=== PATIENT | male | born 1950 ===

== ENCOUNTER 2022-11-11 17:00 | Inpatient (IN) | payer OTHER, SELFPAY ==
[2022-11-11 17:09] VITALS: BP 72/48; BP 88/46; PULSE 100; RESP 20; TEMP 36.6; O2SAT 94; O2SAT 95; BMI 16.1
--- NOTE | 2022-11-11 17:45 | ED.GENADULT ---
HPI - General Adult General Chief complaint: General Medical Stated complaint: hypotensive, per ems Time Seen by Provider: 11/11/22 17:25 Source: patient Mode of arrival: EMS Limitations: no limitations History of Present Illness HPI narrative: Patient comes to the emergency room complaining of low blood pressure. Patient states that he has noted that for approximately 2 days he has had bloody liquidy stool in his ostomy bag. Patient denies being on blood thinners. Patient states that today, he was working with physical therapy visiting nurse at home. It was noticed that his blood pressure was 60/30. Patient reported lightheadedness. At this time, patient denies any pain, denies chest pain or shortness of breath. Patient states that he feels a bit weak. Related Data Allergies Allergy/AdvReac Type Severity Reaction Status Date / Time No Known Allergies Allergy Verified 11/11/22 17:08 Review of Systems Review of Systems: Constitutional : No Weight loss, No Fever, No Chills, No Night Sweats, complaining of feeling weak ENT/Mouth : No Hearing loss, No Ear Pain, No Nasal Congestion, No Sinus Pain, No Hoarseness, No sore throat, No Rhinorrhea, No Swallowing Difficulty Eyes: No Eye Pain, No Swelling, No Redness, No Foreign Body, No Discharge, No Vision Changes Cardiovascular : No Chest Pain, No SOB, No Dyspnea on Exertion, No Orthopnea, No Edema, No Palpitations Respiratory : No Cough, No Sputum, No Wheezing, No Smoke Exposure, No Dyspnea Gastrointestinal : No Nausea, No Vomiting, No Diarrhea, No Constipation, No abdominal Pain, complaining of seeing liquid bloody stool in the ostomy bag for couple of days Genitourinary :No Dysuria, No Urinary Frequency, No Hematuria, No Urinary Incontinence, No Urgency, No Flank Pain, No Urinary Flow Changes, No Hesitancy Musculoskeletal : No joint pain, No Myalgias, No Joint Swelling Skin : No Skin Lesions, No rash Neuro : No Weakness, No Numbness, No Paresthesias, No Loss of Consciousness, No Dizziness, No Headache Psych : No Anxiety/Panic, No Depression, No SI/HI/AH/VH, No Social Issues, Heme/Lymph: No Bruising, No Bleeding,No Lymphadenopathy Endocrine : No Polyuria, No Polydipsia, No Temperature Intolerance PMFSH Social History Social History Smoked in Last 30 Days: No Advance Directives: No Advance Directives Information Provided: No Physical Exam ED Vital Signs: Vital Signs - 24 hr 11/11/22 17:09 11/11/22 18:41 Temperature 97.8 F Pulse Rate 100 82 Respiratory Rate 20 18 Blood Pressure 88/46 L 141/51 H Pulse Oximetry 95 94 Oxygen Delivery Method Room Air Room Air BMI result Body Mass Index 16.1 Course Course Course Narrative: -all of patient's labs pending, patient's initial blood pressure 88/46. Patient has had multiple reads above 100 systolic, but not recorded in patient's chart Medications Administered Generic Name Dose Route Start Last Admin Trade Name Freq PRN Reason Stop Dose Admin Ceftriaxone Sodium 1 gm/ 50 mls @ 100 mls/hr 11/11/22 19:09 11/11/22 19:19 Sodium Chloride IV 11/11/22 19:38 100 mls/hr ONCE ONE Administration Discontinued Medications Generic Name Dose Route Start Last Admin Trade Name Freq PRN Reason Stop Dose Admin Sodium Chloride 1,611 mls @ 1,611 mls/hr 11/11/22 17:47 11/11/22 19:12 Ns 30 ml/kg infuse over 1 hr (1611 ml) 11/11/22 18:46 1,611 mls/hr IV Administration .Q1H STA Medical Decision Making Medical Decision Making MDM Narrative: -interpretation of labs: Patient's white blood cell count is significantly elevated, sodium 125, creatinine 3.49. We do not know patient's baselines. We requested records from [facility], patient states that he had left a BKA done at [facility] approximately 2 years ago. 19:09: Urine and chest x-ray still pending. patient being given ceftriaxone and already received 30 mL/kilogram of fluids. -patient has a sodium level of 125, patient receiving IV fluids. -patient's BUN and creatinine elevated. Creatinine 3.49. We requested records from [facility] but they do not have any records on the patient regarding labs. -Patient's white blood cell count 25.6, lactic acid has not been drawn at 19: 10 -my interpretation of chest x-ray: No pneumonia -radiology report: No focal consolidation, there is a 1 cm nodular opacity, will need follow-up -I discussed the patient with Dr. Harper, patient being admitted. Differential Diagnosis Differential Diagnoses: The differential diagnosis associated with the presentation includes (UTI, pneumonia, GI bleed) Admission/Observation Consideration of admission/observation: Escalation of care including admission/observation considered Consult Healthcare Provider Management of the patient was discussed with: Hospitalist (Dr. Harper) Lab Data MDM Lab Attestation statement: I reviewed the patient's lab results. 11/11/22 17:21 11/11/22 17:21 Labs: Lab Results 11/11/22 11/11/22 11/11/22 Range/Units 17:21 17:21 17:48 WBC 25.6 H (4.8-10.8) X10*3/uL RBC 3.85 L (4.60-5.80) X10*6/uL Hgb 11.3 L (14.0-18.0) g/dl Hct 33.1 L (42.0-52.0) % MCV 86.0 (80.0-98.0) fL MCH 29.4 (27.0-33.0) pg MCHC 34.1 (31.0-36.0) g/dl RDW 15.0 (11.0-16.0) % Plt Count 208 (160-400) X10*3/uL MPV 8.9 L (9.4-12.4) fL Immature Gran % (Auto) 0.7 H (0.0-0.4) % Neut % (Auto) 90.5 H (45-73) % Lymph % (Auto) 2.8 L (20-40) % [place] % (Auto) 4.7 (2-11) % Eos % (Auto) 1.1 (0-4) % Baso % (Auto) 0.2 (0-2) % Lymph # (Auto) 0.7 L (1.2-4.9) X10*3/uL [place] # (Auto) 1.2 (0.1-1.2) X10*3/uL Eos # (Auto) 0.3 (0.0-0.4) X10*3/uL Baso # (Auto) 0.0 (0.0-0.2) X10*3/uL Abs Immat Gran (auto) 0.18 H (0.00-0.03) X10*3/uL Absolute Neuts (auto) 23.2 H (2.0-8.3) x10*3/uL Absolute Nucleated RBC 0.000 (0.0-0.012) X10*3/uL Nucleated RBC % (auto) 0.0 (0.0-0.2) /100WBC Smear Tech's Comments VERIFIED Sodium 125 L (135-145) mmol/L Potassium 4.8 (3.3-5.1) mmol/L Chloride 92 L (96-108) mmol/L Carbon Dioxide 19 L (22-29) mmol/L Anion Gap 19 (12-20) BUN 57 H (9-16) mg/dL Creatinine 3.49 H (0.5-1.4) mg/dL Estim Creat Clear Calc 14.3 Estimated GFR 17 Random Glucose 95 (60-115) mg/dL Calcium 9.3 (8.4-10.2) mg/dL Total Bilirubin 0.3 (0.0-1.0) mg/dL Direct Bilirubin 0.1 (0.0-0.5) mg/dL AST 22 (5-37) U/L ALT 22 (0-40) U/L Alkaline Phosphatase 96 (39-117) U/L Total Protein 6.9 (6.5-8.0) g/dL Albumin 3.7 (3.5-5.0) g/dL Lipase 9 (8-78) U/L Urine Color Urine Appearance Urine pH (5.0-9.0) Ur Specific [place] (1.005-1.025) Urine Protein (Neg-Trace) mg/dL Urine Glucose (UA) (Negative) mg/dL Urine Ketones (Negative) mg/dL Urine Blood (Negative) Urine Nitrite (Negative) Ur Leukocyte Esterase (Negative) Urine RBC (0-2) /HPF Urine WBC (0-5) /HPF Ur Squamous Epith Cells (0-2) /HPF Urine Bacteria (None Seen) Hyaline Casts (0-2) /LPF Stool Occult Blood POSITIVE (NEGATIVE) 11/11/22 Range/Units 18:48 WBC (4.8-10.8) X10*3/uL RBC (4.60-5.80) X10*6/uL Hgb (14.0-18.0) g/dl Hct (42.0-52.0) % MCV (80.0-98.0) fL MCH (27.0-33.0) pg MCHC (31.0-36.0) g/dl RDW (11.0-16.0) % Plt Count (160-400) X10*3/uL MPV (9.4-12.4) fL Immature Gran % (Auto) (0.0-0.4) % Neut % (Auto) (45-73) % Lymph % (Auto) (20-40) % [place] % (Auto) (2-11) % Eos % (Auto) (0-4) % Baso % (Auto) (0-2) % Lymph # (Auto) (1.2-4.9) X10*3/uL [place] # (Auto) (0.1-1.2) X10*3/uL Eos # (Auto) (0.0-0.4) X10*3/uL Baso # (Auto) (0.0-0.2) X10*3/uL Abs Immat Gran (auto) (0.00-0.03) X10*3/uL Absolute Neuts (auto) (2.0-8.3) x10*3/uL Absolute Nucleated RBC (0.0-0.012) X10*3/uL Nucleated RBC % (auto) (0.0-0.2) /100WBC Smear Tech's Comments Sodium (135-145) mmol/L Potassium (3.3-5.1) mmol/L Chloride (96-108) mmol/L Carbon Dioxide (22-29) mmol/L Anion Gap (12-20) BUN (9-16) mg/dL Creatinine (0.5-1.4) mg/dL Estim Creat Clear Calc Estimated GFR Random Glucose (60-115) mg/dL Calcium (8.4-10.2) mg/dL Total Bilirubin (0.0-1.0) mg/dL Direct Bilirubin (0.0-0.5) mg/dL AST (5-37) U/L ALT (0-40) U/L Alkaline Phosphatase (39-117) U/L Total Protein (6.5-8.0) g/dL Albumin (3.5-5.0) g/dL Lipase (8-78) U/L Urine Color Dark Yellow Urine Appearance Cloudy Urine pH 5.5 (5.0-9.0) Ur Specific [place] 1.015 (1.005-1.025) Urine Protein 100 (2+) H (Neg-Trace) mg/dL Urine Glucose (UA) Negative (Negative) mg/dL Urine Ketones Trace (Negative) mg/dL Urine Blood Trace H (Negative) Urine Nitrite Negative (Negative) Ur Leukocyte Esterase Trace H (Negative) Urine RBC 0-2 (0-2) /HPF Urine WBC 6-10 H (0-5) /HPF Ur Squamous Epith Cells 3-5 (0-2) /HPF Urine Bacteria None Seen (None Seen) Hyaline Casts >20 (0-2) /LPF Stool Occult Blood (NEGATIVE) Independent Interpretation I performed an independent interpretation of an: Plain X-Ray Radiology Impression Discussion of test interpretation with radiology: I have reviewed the radiologist's reading. Radiologist Impression: FINDINGS: Cardiac and mediastinal silhouette is within normal limits. Aortic arch calcification. Cardiac leads overlie the chest. There is a 1 cm nodular opacity projected over the left lower lung. This could represent a nipple shadow versus a nodule. Normal pulmonary vascularity. No evidence of focal consolidation, effusion or pulmonary edema. No pneumothorax is seen. XR/XR chest 1V IMPRESSION: *No evidence of focal consolidation. ? *1 cm nodular opacity projected over the left lower lung. This could represent a nipple shadow versus nodule. There are no priors available for comparison. Recommend follow-up radiograph with nipple markers for further evaluation. Critical Care Time Critical Care Time Critical Care Time: Yes Total Critical Care Time: 60 Attestation: I have personally provided critical care time. Time includes review of lab data, radiology results, discussion with consultants, and monitoring for potential decompensation. Intervention performed as documented. Discharge Plan Discharge Clinical Impression: Acute hyponatremia, Acute kidney injury, GI bleed, Acute UTI Patient Disposition: Admitted As Inpatient
[2022-11-11 18:41] VITALS: BP 141/51; PULSE 82; RESP 18; O2SAT 94
--- NOTE | 2022-11-11 18:42 | PC.NURSE ---
Straight cath urine obained, upon entering room, Pt iv had become dislodged, IVF all over floor. Attempting new IV placement and IVF order. Pt has friend bringing ostomy supplies in so we can visualize stoma, and ostomy is currently leaking from side
[2022-11-11 19:09] VITALS: BP 149/66; PULSE 102; RESP 20; O2SAT 97
[2022-11-11 19:23] VITALS: BP 151/74; PULSE 102; RESP 20
--- NOTE | 2022-11-11 19:29 | PM.IMHP ---
History of Present Illness Date of Service: 11/11/22 Attending physician on admission: Lj Harper Chief Complaint: Low blood pressure Pt is a 72-year-old male with a PMH significant for?COPD, HTN, HLD, and s/p left AKA in 2019 who presents to the ED after patient's physical therapist noted him to be hypotensive. Patient lives alone but has help from family and VNA, ambulates mostly with a wheelchair but can ambulate with help with a prosthetic leg. Patient states that he woke up a couple of days ago and felt dizzy, nauseous, and with abdominal pain. Says he could barely touch his stomach due to tenderness. Patient also noted bloody liquid stool in his ostomy. Patient had subjective feve though he did not take his temperature. Denies chills. Patient also reports having decreased p.o. intake of both solids and fluids, having lately only been drinking Coca-[employer]a. Has chronic shortness of breath that he says ?may be a little worse than at baseline. Patient also reports a sacral decubitus ulcer. Has had 1 in the past but it went away for a long time, however patient says that a few weeks ago it began to come back. Has not yet had VNA services take care of it. In the ED patient was afebrile but tachycardic up to 102, with initial BP hypotensive at 88/46, though now hypertensive at 151/74. Labs were significant for leukocytosis of 25.6, H&H 11.3/33.1, sodium of 125, BUN 57, creatinine 3.49. Stool was positive for occult blood. UA positive for urine blood, trace leukocyte esterase, WBC 6-10, and with squamous epithelial cells of 3-5, but negative nitrates, and bacteria, likely negative for UTI. CXR showed no evidence of focal consolidation. Did note 1 cm nodule opacity projected over the left lower lung that could represent nipple shadow versus nodule, with recommendation of follow-up radiograph with nipple markers for further evaluation. CT?of abdomen and pelvis pending. EKG demonstrated normal sinus rhythm without evidence of ST elevations or depressions. Pt was treated with IVF sepsis bolus and ceftriaxone. Pt will be admitted to the hospital for treatment and further evaluation of sepsis likely secondary to colitis. Review of Systems Review of Systems: Hypotension Abdominal pain Bloody liquid stool in ostomy x3 days Weakness Nausea, dizziness Sacral decubitus ulcer Decreased p.o. intake of fluids and solids Worsening chronic SOB PMFSH Social History Smoked in Last 30 Days: No Advance Directives: No Advance Directives Information Provided: No Meds Allergies Allergy/AdvReac Type Severity Reaction Status Date / Time No Known Allergies Allergy Verified 11/11/22 17:08 Active Medications: Current Medications Acetaminophen (Acetaminophen 325 Mg Tablet) 650 mg PO Q6H PRN PRN Reason: Pain, Mild (Pain Scale 1-3) Acetaminophen (Acetaminophen Supp 650 Mg Supp.Rect) 650 mg NV Q6H PRN PRN Reason: Pain, Mild (Pain Scale 1-3) Ceftriaxone Sodium 1 gm/ (Sodium Chloride) 50 mls @ 100 mls/hr IV ONCE ONE Stop: 11/11/22 19:38 Last Admin: 11/11/22 19:19 Dose: 100 mls/hr Ondansetron HCl (Ondansetron Hcl 4 Mg/2 Ml Vial) 4 mg IVPUSH Q8H PRN PRN Reason: Nausea and Vomiting Pantoprazole Sodium (Pantoprazole Sodium 40 Mg/10 Ml Vial) 80 mg IVPUSH ONCE ONE Stop: 11/11/22 19:27 Pantoprazole Sodium (Pantoprazole Sodium 40 Mg/10 Ml Vial) 40 mg IVPUSH BID@0630,1630 [facility] Pharmacy Consult (Consult Rx Perform Med Rec) 1 each MISCELLANE ONCE PRN PRN Reason: Consult order Pharmacy Consult (Consult Rx Perform Med Rec) 1 each MISCELLANE ONCE PRN PRN Reason: Consult order Sodium Chloride (0.9 % Sodium Chloride Flush 3 Ml Syringe) 3 ml IVFLUSH QSHIFT [facility] Home Medications Medication Instructions Recorded Confirmed Last Taken Type albuterol sulfate 90 mcg/actuation 2 puff inhalation Q4H PRN wheezing 11/11/22 11/11/22 Unknown History aerosol inhaler aspirin 81 mg tablet,delayed 81 mg PO DAILY 11/11/22 11/11/22 11/11/22 History release atorvastatin 20 mg tablet 20 mg PO DAILY 11/11/22 11/11/22 11/11/22 History bupropion HCl 150 mg tablet,12 hr 150 mg PO DAILY 11/11/22 11/11/22 11/11/22 History sustained-release buspirone 5 mg tablet 5 mg PO BEDTIME 11/11/22 11/11/22 11/10/22 History cyanocobalamin (vitamin B-12) 1,000 mcg PO DAILY 11/11/22 11/11/22 11/11/22 History 1,000 mcg tablet fluticasone 250 mcg-salmeterol 50 1 inh inhalation BID PRN Shortness 11/11/22 11/11/22 Unknown History mcg/dose blistr powdr for Of Breath inhalation (Wixela Inhub) gabapentin 100 mg capsule 100 mg PO BID 11/11/22 11/11/22 11/11/22 History guaifenesin 600 mg tablet, 600 mg PO Q12H PRN Congestion 11/11/22 11/11/22 Unknown History extended release 12 hr ipratropium 0.5 mg-albuterol 3 mg 3 ml inhalation QID PRN Shortness 11/11/22 11/11/22 Unknown History (2.5 mg base)/3 mL nebulization Of Breath soln lisinopril 10 mg tablet 10 mg PO DAILY 11/11/22 11/11/22 11/11/22 History lorazepam 0.5 mg tablet 0.5 mg PO BID PRN Anxiety 11/11/22 11/11/22 Unknown History sertraline 100 mg tablet 200 mg PO DAILY 11/11/22 11/11/22 11/11/22 History trazodone 50 mg tablet 50 mg PO BEDTIME PRN Sleep 11/11/22 11/11/22 Unknown History Physical Exam Vital Signs and Narrative: Vital Signs: Last Vital Signs Temp 97.8 F 11/11/22 17:09 Pulse 102 H 11/11/22 19:23 Resp 20 11/11/22 19:23 BP 151/74 H 11/11/22 19:23 Pulse Ox 97 11/11/22 19:09 O2 Del Method Room Air 11/11/22 19:09 BMI result Body Mass Index 16.1 Constitutional: Alert, cachectic, in no acute distress. Mental Status: Oriented to person, place and time. Eyes: Pupils are equal, round, and reactive to light. Ear, Nose, and Throat: Oropharynx clear, mucous membranes dry. Ears and nose without deformities. Trachea midline. Respiratory: Clear to auscultation bilaterally with diminished breath sounds thorughout. No wheezing, rales, or rhonchi. Cardiovascular: S1, S2 regular. No murmurs, rubs, or gallops. Gastrointestinal: Abdomen soft, non-distended, ostomy in place with bloodly liquid output. LUQ and LLQ tenderness. Normal bowel sounds. Neurologic: Cranial nerves II-XII are grossly intact bilaterally. No focal neurological deficits. Moves all extremities spontaneously. Skin: Stage 1 decubitus ulcer of left buttock. See picture below. Musculoskeletal: No cyanosis or clubbing. Left AKA. Extremities: No edema. Psychiatric: Normal mood and affect. Results Labs 11/11/22 17:21 11/11/22 17:21 Labs: Laboratory Results - last 24 hr 11/11/22 11/11/22 11/11/22 17:21 17:21 17:48 MCV 86.0 MCH 29.4 MCHC 34.1 RDW 15.0 Plt Count 208 MPV 8.9 L Immature Gran % (Auto) 0.7 H Neut % (Auto) 90.5 H Lymph % (Auto) 2.8 L [place] % (Auto) 4.7 Eos % (Auto) 1.1 Baso % (Auto) 0.2 Lymph # (Auto) 0.7 L [place] # (Auto) 1.2 Eos # (Auto) 0.3 Baso # (Auto) 0.0 Abs Immat Gran (auto) 0.18 H Absolute Neuts (auto) 23.2 H Absolute Nucleated RBC 0.000 Nucleated RBC % (auto) 0.0 Smear Tech's Comments VERIFIED Anion Gap 19 Estim Creat Clear Calc 14.3 Estimated GFR 17 Random Glucose 95 Calcium 9.3 Total Bilirubin 0.3 Direct Bilirubin 0.1 AST 22 ALT 22 Alkaline Phosphatase 96 Total Protein 6.9 Albumin 3.7 Lipase 9 Urine Color Urine Appearance Urine pH Ur Specific [place] Urine Protein Urine Glucose (UA) Urine Ketones Urine Blood Urine Nitrite Ur Leukocyte Esterase Urine RBC Urine WBC Ur Squamous Epith Cells Urine Bacteria Hyaline Casts Stool Occult Blood POSITIVE 11/11/22 18:48 MCV MCH MCHC RDW Plt Count MPV Immature Gran % (Auto) Neut % (Auto) Lymph % (Auto) [place] % (Auto) Eos % (Auto) Baso % (Auto) Lymph # (Auto) [place] # (Auto) Eos # (Auto) Baso # (Auto) Abs Immat Gran (auto) Absolute Neuts (auto) Absolute Nucleated RBC Nucleated RBC % (auto) Smear Tech's Comments Anion Gap Estim Creat Clear Calc Estimated GFR Random Glucose Calcium Total Bilirubin Direct Bilirubin AST ALT Alkaline Phosphatase Total Protein Albumin Lipase Urine Color Dark Yellow Urine Appearance Cloudy Urine pH 5.5 Ur Specific [place] 1.015 Urine Protein 100 (2+) H Urine Glucose (UA) Negative Urine Ketones Trace Urine Blood Trace H Urine Nitrite Negative Ur Leukocyte Esterase Trace H Urine RBC 0-2 Urine WBC 6-10 H Ur Squamous Epith Cells 3-5 Urine Bacteria None Seen Hyaline Casts >20 Stool Occult Blood Imaging Radiologist's Impressions: Impressions Chest X-Ray 11/11/22 18:04 IMPRESSION: *No evidence of focal consolidation. *1 cm nodular opacity projected over the left lower lung. This could represent a nipple shadow versus nodule. There are no priors available for comparison. Recommend follow-up radiograph with nipple markers for further evaluation. Assessment and Plan (1) Acute hyponatremia: Status: Acute (2) Acute kidney injury: Status: Acute (3) GI bleed: Status: Acute Plan Pt is a 72-year-old male with a PMH significant for?COPD, HTN, HLD, and s/p left AKA in 2019 who presents to the ED after patient's physical therapist noted him to be hypotensive. Patient lives alone but has help from family and VNA, ambulates mostly with a wheelchair but can ambulate with help with a prosthetic leg. Patient states that he woke up a couple of days ago and felt dizzy, nauseous, with abdominal pain, and bloody liquid output in his ostomy. Pt will be admitted to the hospital for treatment and further evaluation of sepsis likely secondary to colitis. Sepsis possibly secondary to colitis Patient arrived meeting severe sepsis criteria: hypotensive at 88/46, WBC 25.6, tachycardic, creatinine 3.49 Lactic acid WNL at 0.7 Pt with abdominal pain, bloody liquid output in ostomy No other clear signs or sources of infection: No signs of cellulitis, UA negative for UTI, CXR negative Received IVF 30 mls/kg bolus, IV abx Will check CT of abdomen and pelvis Will empirically treat with ceftriaxone, metronidazole IV Protonix GI consult Full liquid diet for now, NPO after midnight Pneumatic boots for DVT prophylaxis Follow CBC ISIDRA Patient's creatinine 3.49, baseline unknown Likely secondary to dehydration due to GI losses and decreased p.o. intake Patient received IVF in ED Follow BMP Hyponatremia Patient's sodium 125 at time of presentation Likely secondary to GI losses, ISIDRA Patient receiving IVF in ED Follow BMP Stage I decubitus ulcer of left buttock Patient positioning q.2 hours Air loss mattress Daily dressing changes Wound care consult COPD Not in acute exacerbation Continue home inhalers HTN Hold antihypertensives for now, resume as indicated Monitor BP closely HLD Continue statin Full Code Attending:?Dr. Harper DVT Prophylaxis: Pneumatic boots Pt will require a hospitalization of at least two nights for treatment of?sepsis in the setting of likely colitis with IVF, IV antibiotics, and specialist consult. Time Spent With Patient Time: Total time managing care of this patient today ____ minutes. Quality Stroke Does the patient have a stroke diagnosis?: No VTE Prior VTE?: No VTE Risk Level:: Medical - moderate - high VTE Device Contraindication: N/A - Device Ordered VTE Drug Contraindication: Treatment Not Indicated
[2022-11-11 19:52] VITALS: BP 146/69; PULSE 102; RESP 20; O2SAT 94
[2022-11-11 21:06] VITALS: BP 150/67; PULSE 111; RESP 18; TEMP 36.6; O2SAT 93
--- NOTE | 2022-11-11 21:19 | PHA.MEDREC ---
Pharmacy Consult ? Medication Reconciliation Pharmacy has completed the medication reconciliation. Pt with list but no doses, uses [facility] [employer] [facility]. Got list faxed from [place] and used that with claim history to match pt list.
[2022-11-12] VITALS (10 sets, daily range): BP systolic 109–135; BP diastolic 56–65; PULSE 89–108; RESP 16–20; TEMP 36.3–37.3; O2SAT 90–94
[2022-11-12] MEDS: Albuterol/Iprat 2.5/0.5MG 3 ML AMPUL.NEB INHALE ×3 (03:20→22:40)
--- NOTE | 2022-11-12 07:33 | PC.NURSE ---
Assumed care for patient 11/11 @ 1710. Patient retaining urine overnight/ no output in [place] cath. Bladder scanned for >999ml. Patient reporting pelvic discomfort at rest and to palpation at time of scan. Covering Dr. Harper notified, orders for de, placed with 1300ml immediate output.
--- NOTE | 2022-11-12 11:19 | HO.PM.IMPN ---
Subjective Subjective Date of Service: 11/12/22 Review of Systems Follow up dizziness feeling hungry no abd pain Physical Exam Vital Signs: Vital Signs: Last Vital Signs Temp 97.6 F 11/12/22 07:13 Pulse 100 11/12/22 07:13 Resp 20 11/12/22 07:13 BP 109/60 11/12/22 07:13 Pulse Ox 94 11/12/22 07:13 O2 Del Method Room Air 11/12/22 07:13 BMI result Body Mass Index 16.1 Appearing in no acute distress lung sounds are clear to auscultation heart regular rate rhythm, clear S1, S2 positive bowel sounds, abdomen is soft, nontender neuro patient is alert x3, no focal deficits Objective Data Active Medications Acetaminophen (Acetaminophen 325 Mg Tablet) 650 mg PO Q6H PRN PRN Reason: Pain, Mild (Pain Scale 1-3) Acetaminophen (Acetaminophen Supp 650 Mg Supp.Rect) [address] Q6H PRN PRN Reason: Pain, Mild (Pain Scale 1-3) Albuterol Sulfate (Albuterol Sulfate 90 Mcg 8 Gm Inhaler) 2 puff INHALE RQ4H PRN PRN Reason: wheezing Albuterol/Ipratropium (Albuterol/Iprat 2.5/0.5mg 3 Ml Ampul.Neb) 3 ml INHALE RQ4H PRN PRN Reason: Wheezing Last Admin: 11/12/22 03:20 Dose: 3 ml Documented By: ZOE Bupropion HCl (Bupropion Hcl 75 Mg Tablet) 75 mg PO BID [facility] Last Admin: 11/12/22 08:59 Dose: 75 mg Documented By: LUDY Buspirone HCl (Buspirone Hcl 5 Mg Tablet) 5 mg PO BEDTIME [facility] Last Admin: 11/11/22 21:50 Dose: 5 mg Documented By: JACKSON Fluticasone/Vilanterol (Fluticasone/Vilanterol 100/25 Blst.W.Dev) 1 puff INHALE DAILY PRN PRN Reason: Shortness Of Breath Gabapentin (Gabapentin 100 Mg Capsule) 100 mg PO BID [facility] Last Admin: 11/12/22 08:59 Dose: 100 mg Documented By: LUDY Guaifenesin (Guaifenesin La 600 Mg Tab.Er.12h) 600 mg PO Q12H PRN PRN Reason: Congestion Ceftriaxone Sodium 1 gm/ (Sodium Chloride) 50 mls @ 100 mls/hr IV Q24H [place] Metronidazole (Flagyl) 500 mg in 100 mls @ 100 mls/hr IV Q8H [facility] Last Infusion: 11/12/22 06:50 Dose: 0 mls/hr Documented By: GISSEL Lorazepam (Lorazepam 0.5 Mg Tablet) 0.5 mg PO BID PRN PRN Reason: Anxiety Last Admin: 11/11/22 21:59 Dose: 0.5 mg Documented By: JACKSON Ondansetron HCl (Ondansetron Hcl 4 Mg/2 Ml Vial) 4 mg IVPUSH Q8H PRN PRN Reason: Nausea and Vomiting Pantoprazole Sodium (Pantoprazole Sodium 40 Mg/10 Ml Vial) 40 mg IVPUSH BID@0630,1630 [facility] Last Admin: 11/12/22 05:46 Dose: 40 mg Documented By: GISSEL Pharmacy Consult (Consult Rx Perform Med Rec) 1 each MISCELLANE ONCE PRN PRN Reason: Consult order Sertraline HCl (Sertraline Hcl 100 Mg Tablet) 200 mg PO DAILY [facility] Last Admin: 11/12/22 08:59 Dose: 200 mg Documented By: LUDY Sodium Chloride (0.9 % Sodium Chloride Flush 3 Ml Syringe) 3 ml IVFLUSH QSHIFT [facility] Last Admin: 11/12/22 09:00 Dose: 3 ml Documented By: LUDY Trazodone HCl (Trazodone Hcl 50 Mg Tablet) 50 mg PO BEDTIME PRN PRN Reason: Sleep Last Admin: 11/11/22 21:59 Dose: 50 mg Documented By: JACKSON Labs 11/12/22 06:11 11/12/22 06:11 Labs: Laboratory Results - last 24 hr 11/11/22 11/11/22 11/11/22 17:21 17:21 17:48 MCV 86.0 MCH 29.4 MCHC 34.1 RDW 15.0 Plt Count 208 MPV 8.9 L Immature Gran % (Auto) 0.7 H Neut % (Auto) 90.5 H Lymph % (Auto) 2.8 L C[place] % (Auto) 4.7 Eos % (Auto) 1.1 Baso % (Auto) 0.2 Lymph # (Auto) 0.7 L [place] # (Auto) 1.2 Eos # (Auto) 0.3 Baso # (Auto) 0.0 Abs Immat Gran (auto) 0.18 H Absolute Neuts (auto) 23.2 H Absolute Nucleated RBC 0.000 Nucleated RBC % (auto) 0.0 Smear Tech's Comments VERIFIED PT INR APTT Anion Gap 19 Estim Creat Clear Calc 14.3 Estimated GFR 17 POC Glucose Random Glucose 95 Lactic Acid Calcium 9.3 Magnesium Total Bilirubin 0.3 Direct Bilirubin 0.1 AST 22 ALT 22 Alkaline Phosphatase 96 Total Protein 6.9 Albumin 3.7 Lipase 9 Urine Color Urine Appearance Urine pH Ur Specific [place] Urine Protein Urine Glucose (UA) Urine Ketones Urine Blood Urine Nitrite Ur Leukocyte Esterase Urine RBC Urine WBC Ur Squamous Epith Cells Urine Bacteria Hyaline Casts Stool Occult Blood POSITIVE 11/11/22 11/11/22 11/11/22 18:48 19:18 19:18 MCV MCH MCHC RDW Plt Count MPV Immature Gran % (Auto) Neut % (Auto) Lymph % (Auto) Cascade % (Auto) Eos % (Auto) Baso % (Auto) Lymph # (Auto) Cascade # (Auto) Eos # (Auto) Baso # (Auto) Abs Immat Gran (auto) Absolute Neuts (auto) Absolute Nucleated RBC Nucleated RBC % (auto) Smear Tech's Comments PT 11.3 INR 1.0 APTT 31.0 Anion Gap Estim Creat Clear Calc Estimated GFR POC Glucose Random Glucose Lactic Acid 0.7 Calcium Magnesium Total Bilirubin Direct Bilirubin AST ALT Alkaline Phosphatase Total Protein Albumin Lipase Urine Color Dark Yellow Urine Appearance Cloudy Urine pH 5.5 Ur Specific [place] 1.015 Urine Protein 100 (2+) H Urine Glucose (UA) Negative Urine Ketones Trace Urine Blood Trace H Urine Nitrite Negative Ur Leukocyte Esterase Trace H Urine RBC 0-2 Urine WBC 6-10 H Ur Squamous Epith Cells 3-5 Urine Bacteria None Seen Hyaline Casts >20 Stool Occult Blood 11/11/22 11/12/22 11/12/22 19:18 06:11 06:11 MCV 88.9 MCH 29.3 MCHC 32.9 RDW 15.0 Plt Count 221 MPV 9.4 Immature Gran % (Auto) 0.7 H Neut % (Auto) 90.5 H Lymph % (Auto) 2.3 L [place] % (Auto) 5.3 Eos % (Auto) 0.9 Baso % (Auto) 0.3 Lymph # (Auto) 0.5 L [place] # (Auto) 1.1 Eos # (Auto) 0.2 Baso # (Auto) 0.1 Abs Immat Gran (auto) 0.15 H Absolute Neuts (auto) 19.2 H Absolute Nucleated RBC 0.000 Nucleated RBC % (auto) 0.0 Smear Tech's Comments VERIFIED PT INR APTT Anion Gap 17 Estim Creat Clear Calc 26.4 Estimated GFR 35 POC Glucose Random Glucose 51 L* Lactic Acid Calcium 9.3 Magnesium 2.4 Total Bilirubin Direct Bilirubin AST ALT Alkaline Phosphatase Total Protein Albumin Lipase Urine Color Urine Appearance Urine pH Ur Specific [place] Urine Protein Urine Glucose (UA) Urine Ketones Urine Blood Urine Nitrite Ur Leukocyte Esterase Urine RBC Urine WBC Ur Squamous Epith Cells Urine Bacteria Hyaline Casts Stool Occult Blood 11/12/22 11/12/22 08:40 10:19 MCV MCH MCHC RDW Plt Count MPV Immature Gran % (Auto) Neut % (Auto) Lymph % (Auto) Cascade % (Auto) Eos % (Auto) Baso % (Auto) Lymph # (Auto) Cascade # (Auto) Eos # (Auto) Baso # (Auto) Abs Immat Gran (auto) Absolute Neuts (auto) Absolute Nucleated RBC Nucleated RBC % (auto) Smear Tech's Comments PT INR APTT Anion Gap Estim Creat Clear Calc Estimated GFR POC Glucose 55 L* 81 Random Glucose Lactic Acid Calcium Magnesium Total Bilirubin Direct Bilirubin AST ALT Alkaline Phosphatase Total Protein Albumin Lipase Urine Color Urine Appearance Urine pH Ur Specific [place] Urine Protein Urine Glucose (UA) Urine Ketones Urine Blood Urine Nitrite Ur Leukocyte Esterase Urine RBC Urine WBC Ur Squamous Epith Cells Urine Bacteria Hyaline Casts Stool Occult Blood Assessment and Plan (1) Colitis: Status: Acute Plan Pt is a 72-year-old male with a PMH significant for?COPD, HTN, HLD, and s/p left AKA in 2019 who presents to the ED after patient's physical therapist noted him to be hypotensive.? Patient lives alone but has help from family and VNA, ambulates mostly with a wheelchair but can ambulate with help with a prosthetic leg. Patient states that he woke up a couple of days ago and felt dizzy, nauseous, with abdominal pain, and bloody liquid output in his ostomy.? Pt will be admitted to the hospital for treatment and further evaluation of sepsis likely secondary to colitis. Sepsis possibly secondary to colitis s/p abdominal pain, bloody liquid output in ostomy No other clear signs or sources of infection:? No signs of cellulitis, UA negative for UTI, CXR negative empirically treat with ceftriaxone, metronidazole IV Protonix GI consult>no obvious colitis on abd ct, check stool studies and cdiff advance diet ISIDRA. Trending down Patient's creatinine 3.49, baseline unknown Likely secondary to dehydration due to GI losses and decreased p.o. intake Follow BMP Hyponatremia. Trending up Patient's sodium 125 at time of presentation Likely secondary to GI losses, ISIDRA treated with IV fluids Follow BMP Lung nodules unable to do contrast CT due to ISIDRA, will get non con CT to better assess nodules possible pyelonephritis noted in abd ct no urinary symptoms on rocephin for colitis, continue Stage I decubitus ulcer of left buttock repositioning q.2 hours Air loss mattress Daily dressing changes Wound care consult COPD Not in acute exacerbation Continue home inhalers HTN Hold antihypertensives for now, resume as indicated Monitor BP closely HLD Continue statin Full Code Attending:?Dr. Anthony DVT Prophylaxis:? Pneumatic boots continued hospital stay for treatment of?sepsis in the setting of likely colitis with IVF, IV antibiotics, and specialist consult. Time Spent With Patient Time: Total time managing care of this patient today ____ minutes. Quality Stroke Does the patient have a stroke diagnosis?: No VTE Prior VTE?: No VTE Risk Level:: Medical - moderate - high VTE Device Contraindication: N/A - Device Ordered VTE Drug Contraindication: Treatment Not Indicated
--- NOTE | 2022-11-12 13:11 | PM.GICN ---
History of Present Illness Data of Consult Service Date: 11/12/22 Requesting physician: Lj Harper Primary Care Provider: Unknown Physician HPI Reason for consult: Colitis This is a 72y.o M with PMH of COPD, HTN, HLD, left AKA in 2019 who was sent to the ER by his physiotherapist for dizziness and hypotension. Pt reports that for the past 3 days he has been feeling unwell. Has significant left sided abdominal pain associated with decrease in urinary output but increase in liquidy output of the ostomy. He also saw some blood in his ostomy output on which cleared up by next day. No fevers but does report chills and loss of appetite. Has been working with his PT to walk with leg prosthesis but has been noticing pain and discomfort x 1 week limiting his progress. When he presented to the ER he was noted to be septic with tachycardia and soft BPs. White count was elevated to [address] Abd/pel was obtained that showed mutliple abnormalities including possible L sided colitis for which GI has been consulted. Currently at the time of evaluation, pt reports resolution in abdominal pain - says the pain went away after he was cathed and put out almost 1300cc urine. Was taking liquid diet without any difficulty at the time of my assessment. Review of Systems Review of Systems: Yes all other systems are reviewed and are negative PMFSH Social History Social History Household Members: None Housing: House Patient Tobacco Use Status: Current everyday Tobacco user Tobacco use type: Cigarette Cigarette Packs Per Day: 0.5 Cigarettes Per Day: 10.0 Smoked in Last 30 Days: No Patient Interested in Nicotine Replacement: No Use of substances other than those prescribed or required for medical reasons: No Currently Displaying Signs/Symptoms of Drug Intoxication Withdrawal: No Have you been hit, kicked, punched, or otherwise hurt by someone within the past year? If so, by whom?: No Do you feel safe in your current relationship?: Yes Is there a partner from a previous relationship who is making you feel unsafe now?: No Are you made to feel afraid or neglected: No Advance Directives: No Advance Directives Information Provided: No Do you have thoughts of harming others: None Do you have a plan to hurt others: No Plan Recently lost weight without trying: No Nutrition Risks: No Nutritional Risk Poor oral hygiene: Yes Meds Allergies Allergy/AdvReac Type Severity Reaction Status Date / Time No Known Allergies Allergy Verified 11/11/22 17:08 Active Medications: Current Medications Acetaminophen (Acetaminophen 325 Mg Tablet) 650 mg PO Q6H PRN PRN Reason: Pain, Mild (Pain Scale 1-3) Acetaminophen (Acetaminophen Supp 650 Mg Supp.Rect) 650 mg DE Q6H PRN PRN Reason: Pain, Mild (Pain Scale 1-3) Albuterol Sulfate (Albuterol Sulfate 90 Mcg 8 Gm Inhaler) 2 puff INHALE RQ4H PRN PRN Reason: wheezing Albuterol/Ipratropium (Albuterol/Iprat 2.5/0.5mg 3 Ml Ampul.Neb) 3 ml INHALE RQ4H PRN PRN Reason: Wheezing Last Admin: 11/12/22 03:20 Dose: 3 ml Bupropion HCl (Bupropion Hcl 75 Mg Tablet) 75 mg PO BID [facility] Last Admin: 11/12/22 08:59 Dose: 75 mg Buspirone HCl (Buspirone Hcl 5 Mg Tablet) 5 mg PO BEDTIME [facility] Last Admin: 11/11/22 21:50 Dose: 5 mg Fluticasone/Vilanterol (Fluticasone/Vilanterol 100/25 Blst.W.Dev) 1 puff INHALE DAILY PRN PRN Reason: Shortness Of Breath Gabapentin (Gabapentin 100 Mg Capsule) 100 mg PO BID [facility] Last Admin: 11/12/22 08:59 Dose: 100 mg Guaifenesin (Guaifenesin La 600 Mg Tab.Er.12h) 600 mg PO Q12H PRN PRN Reason: Congestion Ceftriaxone Sodium 1 gm/ (Sodium Chloride) 50 mls @ 100 mls/hr IV Q24H [facility] Metronidazole (Flagyl) 500 mg in 100 mls @ 100 mls/hr IV Q8H [facility] Last Infusion: 11/12/22 06:50 Dose: Infused Lorazepam (Lorazepam 0.5 Mg Tablet) 0.5 mg PO BID PRN PRN Reason: Anxiety Last Admin: 11/11/22 21:59 Dose: 0.5 mg Ondansetron HCl (Ondansetron Hcl 4 Mg/2 Ml Vial) 4 mg IVPUSH Q8H PRN PRN Reason: Nausea and Vomiting Pantoprazole Sodium (Pantoprazole Sodium 40 Mg/10 Ml Vial) 40 mg IVPUSH BID@0630,7380 [facility] Last Admin: 11/12/22 05:46 Dose: 40 mg Pharmacy Consult (Consult Rx Perform Med Rec) 1 each MISCELLANE ONCE PRN PRN Reason: Consult order Sertraline HCl (Sertraline Hcl 100 Mg Tablet) 200 mg PO DAILY [facility] Last Admin: 11/12/22 08:59 Dose: 200 mg Sodium Chloride (0.9 % Sodium Chloride Flush 3 Ml Syringe) 3 ml IVFLUSH QSHIFT [facility] Last Admin: 11/12/22 09:00 Dose: 3 ml Trazodone HCl (Trazodone Hcl 50 Mg Tablet) 50 mg PO BEDTIME PRN PRN Reason: Sleep Last Admin: 11/11/22 21:59 Dose: 50 mg Home Medications Medication Instructions Recorded Confirmed Last Taken Type albuterol sulfate 90 mcg/actuation 2 puff inhalation Q4H PRN wheezing 11/11/22 11/11/22 Unknown History aerosol inhaler aspirin 81 mg tablet,delayed 81 mg PO DAILY 11/11/22 11/11/22 11/11/22 History release atorvastatin 20 mg tablet 20 mg PO DAILY 11/11/22 11/11/22 11/11/22 History bupropion HCl 150 mg tablet,12 hr 150 mg PO DAILY 11/11/22 11/11/22 11/11/22 History sustained-release buspirone 5 mg tablet 5 mg PO BEDTIME 11/11/22 11/11/22 11/10/22 History cyanocobalamin (vitamin B-12) 1,000 mcg PO DAILY 11/11/22 11/11/22 11/11/22 History 1,000 mcg tablet fluticasone 250 mcg-salmeterol 50 1 inh inhalation BID PRN Shortness 11/11/22 11/11/22 Unknown History mcg/dose blistr powdr for Of Breath inhalation (Catarina Inhub) gabapentin 100 mg capsule 100 mg PO BID 11/11/22 11/11/22 11/11/22 History guaifenesin 600 mg tablet, 600 mg PO Q12H PRN Congestion 11/11/22 11/11/22 Unknown History extended release 12 hr ipratropium 0.5 mg-albuterol 3 mg 3 ml inhalation QID PRN Shortness 11/11/22 11/11/22 Unknown History (2.5 mg base)/3 mL nebulization Of Breath soln lisinopril 10 mg tablet 10 mg PO DAILY 11/11/22 11/11/22 11/11/22 History lorazepam 0.5 mg tablet 0.5 mg PO BID PRN Anxiety 11/11/22 11/11/22 Unknown History sertraline 100 mg tablet 200 mg PO DAILY 11/11/22 11/11/22 11/11/22 History trazodone 50 mg tablet 50 mg PO BEDTIME PRN Sleep 11/11/22 11/11/22 Unknown History Physical Exam Vital Signs: Vital Signs: Last Vital Signs Temp 97.4 F 11/12/22 11:19 Pulse 93 11/12/22 11:19 Resp 20 11/12/22 11:19 BP 115/65 11/12/22 11:19 Pulse Ox 92 11/12/22 11:19 O2 Del Method Room Air 11/12/22 11:19 BMI result Body Mass Index 16.1 Gen appear: Elderly male, non toxic appearing HEENT: nonicteric, no cervical lymphadenopathy Chest: CTA CVS: Regular S1/S2 Abd: soft, mild tenderness on LUQ, ostomy with brown liquidy output Ext: s/p L AKA Neuro: A/Ox3, noted to move all extremities spontaneously Psych: interacting appropriately Derm: decubitus ulcer Results Labs 11/12/22 06:11 11/12/22 06:11 Labs: Short CBC 11/11/22 11/12/22 Range/Units 17:21 06:11 WBC 25.6 H 21.2 H (4.8-10.8) X10*3/uL Hgb 11.3 L 11.1 L (14.0-18.0) g/dl Hct 33.1 L 33.7 L (42.0-52.0) % Plt Count 208 221 (160-400) X10*3/uL BMP 11/11/22 11/12/22 17:21 06:11 Sodium 125 L 131 L Potassium 4.8 4.8 Chloride 92 L 102 Carbon Dioxide 19 L 17 L BUN 57 H 44 H Creatinine 3.49 H 1.89 H Calcium 9.3 9.3 Liver Function 11/11/22 Range/Units 17:21 Total Bilirubin 0.3 (0.0-1.0) mg/dL Direct Bilirubin 0.1 (0.0-0.5) mg/dL AST 22 (5-37) U/L ALT 22 (0-40) U/L Alkaline Phosphatase 96 (39-117) U/L Albumin 3.7 (3.5-5.0) g/dL Urine 11/11/22 Range/Units 18:48 Urine Color Dark Yellow Urine Appearance Cloudy Urine pH 5.5 (5.0-9.0) Ur Specific [place] 1.015 (1.005-1.025) Urine Protein 100 (2+) H (Neg-Trace) mg/dL Urine Glucose (UA) Negative (Negative) mg/dL Microbiology Microbiology Results: Microbiology 11/11/22 Unknown Urine clean catch - Urine de la garza top Urine Culture - Preliminary No growth to date. Assessment and Plan (1) Sepsis: Status: Acute (2) Acute kidney injury: Status: Acute (3) Pyelonephritis: Status: Acute (4) Colitis: Status: Acute Plan At present sepsis appears to be secondary to multiple etiologies including pyelo, cellulitis of sacral ulcer, ?? femoral neck abnormality. Colitis also certainly also a possibility and likely infectious colitis based on presentation. Recommendations: - Eval of other sources as per primary team - GI panel and C Diff remigio as pt needs to be on ABx for pyelo - Typically infectious colitis is anticipated to improve in 3-5 days. However if there is no clinical progress in the next few days can consider repeat contrasted imaging if renal function allows vs endoscopic evaluation through colostomy Findings were reviewed with the hospitalist team in AM. Thank you for the consultation. Please do not hesitate to reach out for any questions or concerns. Time Spent With Patient Time: Total time managing care of this patient today ____ minutes. Procedures Date of Service Date of Service: 11/12/22
[2022-11-13] VITALS (7 sets, daily range): BP systolic 104–168; BP diastolic 45–96; PULSE 76–93; RESP 16–20; TEMP 36.4–37.4; O2SAT 92–98
[2022-11-13 07:13] LABS: Anion Gap 12 (12-20); Blood Urea Nitrogen 26 mg/dL (9-16); Calcium 9.4 mg/dL (8.4-10.2); Carbon Dioxide 24 mmol/L (22-29); Chloride 102 mmol/L (96-108); Creatinine Clr Calc Pharmacy 60.2; Estimated Glomerular Filt Rate > 60; Glucose Random 96 mg/dL (60-115); Potassium 4.6 mmol/L (3.3-5.1); Sodium 133 mmol/L (135-145)
[2022-11-13] MEDS: Albuterol/Iprat 2.5/0.5MG 3 ML AMPUL.NEB INHALE ×2 (08:44→08:45)
--- NOTE | 2022-11-13 09:23 | MHC.CM.PN ---
Addendum entered by Thea Goodson 11/13/22 09:30: PT ALSO HAS A JOB ESTIMATOR THAT COMES 5-6 DAYS PER WEEK SHE ASSISTS WITH MEALS, CLEANING AND COMPANIONSHIP Original Note: PT REPORTS HE LIVES ALONE IN THE [address] APT OF HIS 3-FAMILY HOME HIS DAUGHTER LIVES ON THE 2ND FLOOR AND HIS FRIEND LIVES ON THE 3RD HE SAYS THEY BOTH ASSIST PRN HE IS ALSO ACTIVE WITH [facility] FOR PT, BUT HOPES HE CAN RECEIVE RN SERVICES UPON DC PT USES A WALKER AND A WHEEL CHAIR AT HOME HE REPORTS HE HAS ADVANCED DIRECTIVES, INCLUDING A HCP, COMPLETED AND ON FILE AT A [facility] IN [place] HE BELIEVES IT IS [facility], [facility] UNABLE TO REQUEST COPIES DUE TO WEEKEND CLOSURE PCP: HOLLIE FERNANDEZ AT [facility] IMM DELIVERED DCP: HOME RESUME SERVICES FRIEND TO TRANSPORT
--- NOTE | 2022-11-13 11:13 | HO.PM.IMPN ---
Subjective Subjective Date of Service: 11/13/22 Review of Systems Follow up dizziness feeling hungry no abd pain Physical Exam Vital Signs: Vital Signs: Last Vital Signs Temp 99.0 F 11/13/22 07:48 Pulse 88 11/13/22 07:48 Resp 18 11/13/22 07:48 BP 168/78 H 11/13/22 07:48 Pulse Ox 92 11/13/22 07:48 O2 Del Method Room Air 11/13/22 07:48 BMI result Body Mass Index 16.1 Appearing in no acute distress lung sounds are clear to auscultation heart regular rate rhythm, clear S1, S2 positive bowel sounds, abdomen is soft, nontender neuro patient is alert x3, no focal deficits Objective Data Active Medications Acetaminophen (Acetaminophen 325 Mg Tablet) 650 mg PO Q6H PRN PRN Reason: Pain, Mild (Pain Scale 1-3) Acetaminophen (Acetaminophen Supp 650 Mg Supp.Rect) 650 mg AL Q6H PRN PRN Reason: Pain, Mild (Pain Scale 1-3) Albuterol Sulfate (Albuterol Sulfate 90 Mcg 8 Gm Inhaler) 2 puff INHALE RQ4H PRN PRN Reason: wheezing Albuterol/Ipratropium (Albuterol/Iprat 2.5/0.5mg 3 Ml Ampul.Neb) 3 ml INHALE RQ4H PRN PRN Reason: Wheezing Last Admin: 11/13/22 08:45 Dose: 3 ml Documented By: JC Bupropion HCl (Bupropion Hcl 75 Mg Tablet) 75 mg PO BID [facility] Last Admin: 11/13/22 08:51 Dose: 75 mg Documented By: LUDY Buspirone HCl (Buspirone Hcl 5 Mg Tablet) 5 mg PO BEDTIME [facility] Last Admin: 11/12/22 21:03 Dose: 5 mg Documented By: GISSEL Fluticasone/Vilanterol (Fluticasone/Vilanterol 100/25 Blst.W.Dev) 1 puff INHALE DAILY PRN PRN Reason: Shortness Of Breath Gabapentin (Gabapentin 100 Mg Capsule) 100 mg PO BID [facility] Last Admin: 11/13/22 08:51 Dose: 100 mg Documented By: LUDY Guaifenesin (Guaifenesin La 600 Mg Tab.Er.12h) 600 mg PO Q12H PRN PRN Reason: Congestion Ceftriaxone Sodium 1 gm/ (Sodium Chloride) 50 mls @ 100 mls/hr IV Q24H [facility] Last Infusion: 11/12/22 21:34 Dose: 0 mls/hr Documented By: GISSEL Metronidazole (Flagyl) 500 mg in 100 mls @ 100 mls/hr IV Q8H [facility] Last Infusion: 11/13/22 07:02 Dose: 0 mls/hr Documented By: LUDY Lorazepam (Lorazepam 0.5 Mg Tablet) 0.5 mg PO BID PRN PRN Reason: Anxiety Last Admin: 11/13/22 08:51 Dose: 0.5 mg Documented By: LUDY Melatonin (Melatonin 3 Mg Tablet) 6 mg PO BEDTIME PRN PRN Reason: insomnia Last Admin: 11/12/22 21:54 Dose: 6 mg Documented By: GISSEL Ondansetron HCl (Ondansetron Hcl 4 Mg/2 Ml Vial) 4 mg IVPUSH Q8H PRN PRN Reason: Nausea and Vomiting Pantoprazole Sodium (Pantoprazole Sodium 40 Mg/10 Ml Vial) 40 mg IVPUSH BID@0630,1630 [facility] Last Admin: 11/13/22 06:01 Dose: 40 mg Documented By: GISSEL Pharmacy Consult (Consult Rx Perform Med Rec) 1 each MISCELLANE ONCE PRN PRN Reason: Consult order Sertraline HCl (Sertraline Hcl 100 Mg Tablet) 200 mg PO DAILY [facility] Last Admin: 11/13/22 08:51 Dose: 200 mg Documented By: LUDY Sodium Chloride (0.9 % Sodium Chloride Flush 3 Ml Syringe) 3 ml IVFLUSH QSHIFT [facility] Last Admin: 11/13/22 08:51 Dose: 3 ml Documented By: LUDY Trazodone HCl (Trazodone Hcl 50 Mg Tablet) 50 mg PO BEDTIME PRN PRN Reason: Sleep Last Admin: 11/12/22 21:54 Dose: 50 mg Documented By: GISSEL Labs 11/12/22 06:11 11/13/22 06:22 Labs: Laboratory Results - last 24 hr 11/13/22 06:22 Anion Gap 12 Estim Creat Clear Calc 60.2 Estimated GFR > 60 Random Glucose 96 Calcium 9.4 Microbiology Microbiology Results: Microbiology 11/11/22 Unknown Urine Culture - Final Urine clean catch - Urine de la garza top No growth. 11/11/22 19:18 Blood Culture - Preliminary Blood - Venous No growth after 24 hours. 11/11/22 19:18 Blood Culture - Preliminary Blood - Venous No growth after 24 hours. Assessment and Plan (1) Colitis: Status: Acute Plan Pt is a 72-year-old male with a PMH significant for?COPD, HTN, HLD, and s/p left AKA in 2019 who presents to the ED after patient's physical therapist noted him to be hypotensive.? Patient lives alone but has help from family and VNA, ambulates mostly with a wheelchair but can ambulate with help with a prosthetic leg. Patient states that he woke up a couple of days ago and felt dizzy, nauseous, with abdominal pain, and bloody liquid output in his ostomy.? Pt will be admitted to the hospital for treatment and further evaluation of sepsis likely secondary to colitis. Sepsis possibly secondary to colitis s/p abdominal pain, bloody liquid output in ostomy No other clear signs or sources of infection:? No signs of cellulitis, UA negative for UTI, CXR negative empirically treated with ceftriaxone, metronidazole s/p IV Protonix GI consult>no obvious colitis on abd ct, check stool studies and cdiff advance diet ISIDRA. Trending down Patient's creatinine 3.49, baseline unknown Likely secondary to dehydration due to GI losses and decreased p.o. intake Follow BMP Hyponatremia. Trending up Patient's sodium 125 at time of presentation Likely secondary to GI losses, ISIDRA treated with IV fluids Follow BMP Lung nodules patient reported that he had workup already no need for further testing possible pyelonephritis noted in abd ct no urinary symptoms, did report some back pain on rocephin Stage I decubitus ulcer of left buttock repositioning q.2 hours Air loss mattress Daily dressing changes Wound care consult COPD Not in acute exacerbation Continue home inhalers HTN Hold antihypertensives for now, resume as indicated Monitor BP closely HLD Continue statin Attending:?Dr. Anthony DVT Prophylaxis:? Pneumatic boots continued hospital stay for treatment of?sepsis in the setting of likely colitis with IVF, IV antibiotics, and specialist consult. Time Spent With Patient Time: Total time managing care of this patient today ____ minutes. Quality Stroke Does the patient have a stroke diagnosis?: No VTE Prior VTE?: No VTE Risk Level:: Medical - moderate - high VTE Device Contraindication: N/A - Device Ordered VTE Drug Contraindication: Treatment Not Indicated
[2022-11-14] VITALS (8 sets, daily range): BP systolic 137–168; BP diastolic 68–80; PULSE 81–104; RESP 15–20; TEMP 36.4–37.2; O2SAT 92–95; BMI 19.0
[2022-11-14 08:42] LABS: Anion Gap 12 (12-20); Blood Urea Nitrogen 14 mg/dL (9-16); Calcium 9.4 mg/dL (8.4-10.2); Carbon Dioxide 28 mmol/L (22-29); Chloride 100 mmol/L (96-108); Creatinine Clr Calc Pharmacy 76.8; Estimated Glomerular Filt Rate > 60; Glucose Random 100 mg/dL (60-115); Potassium 4.5 mmol/L (3.3-5.1); Sodium 135 mmol/L (135-145)
--- NOTE | 2022-11-14 10:11 | HO.PM.IMPN ---
Subjective Subjective Date of Service: 11/14/22 Review of Systems Follow up dizziness doing well today, no dizziness no pain Physical Exam Vital Signs: Vital Signs: Last Vital Signs Temp 97.9 F 11/14/22 07:32 Pulse 85 11/14/22 07:32 Resp 20 11/14/22 07:32 BP 163/77 H 11/14/22 07:32 Pulse Ox 93 11/14/22 07:32 O2 Del Method Room Air 11/14/22 07:32 BMI result Body Mass Index 16.1 Appearing in no acute distress lung sounds are clear to auscultation heart regular rate rhythm, clear S1, S2 positive bowel sounds, abdomen is soft, nontender neuro patient is alert x3, no focal deficits Objective Data Active Medications Acetaminophen (Acetaminophen 325 Mg Tablet) 650 mg PO Q6H PRN PRN Reason: Pain, Mild (Pain Scale 1-3) Last Admin: 11/13/22 19:40 Dose: 650 mg Documented By: JOSE Acetaminophen (Acetaminophen Supp 650 Mg Supp.Rect) 650 mg MT Q6H PRN PRN Reason: Pain, Mild (Pain Scale 1-3) Albuterol Sulfate (Albuterol Sulfate 90 Mcg 8 Gm Inhaler) 2 puff INHALE RQ4H PRN PRN Reason: wheezing Albuterol/Ipratropium (Albuterol/Iprat 2.5/0.5mg 3 Ml Ampul.Neb) 3 ml INHALE RQ4H PRN PRN Reason: Wheezing Last Admin: 11/13/22 08:45 Dose: 3 ml Documented By: JC Bupropion HCl (Bupropion Hcl 75 Mg Tablet) 75 mg PO BID [facility] Last Admin: 11/14/22 08:30 Dose: 75 mg Documented By: LUDY Buspirone HCl (Buspirone Hcl 5 Mg Tablet) 5 mg PO BEDTIME [facility] Last Admin: 11/13/22 19:40 Dose: 5 mg Documented By: JOSE Fluticasone/Vilanterol (Fluticasone/Vilanterol 100/25 Blst.W.Dev) 1 puff INHALE DAILY PRN PRN Reason: Shortness Of Breath Gabapentin (Gabapentin 100 Mg Capsule) 100 mg PO BID [facility] Last Admin: 11/14/22 08:30 Dose: 100 mg Documented By: LUDY Guaifenesin (Guaifenesin La 600 Mg Tab.Er.12h) 600 mg PO Q12H PRN PRN Reason: Congestion Ceftriaxone Sodium 1 gm/ (Sodium Chloride) 50 mls @ 100 mls/hr IV Q24H [facility] Last Infusion: 11/13/22 21:00 Dose: 0 mls/hr Documented By: JOSE Metronidazole (Flagyl) 500 mg in 100 mls @ 100 mls/hr IV Q8H [facility] Last Infusion: 11/14/22 07:13 Dose: 0 mls/hr Documented By: RAH Lorazepam (Lorazepam 0.5 Mg Tablet) 0.5 mg PO BID PRN PRN Reason: Anxiety Last Admin: 11/14/22 08:30 Dose: 0.5 mg Documented By: LUDY Melatonin (Melatonin 3 Mg Tablet) 6 mg PO BEDTIME PRN PRN Reason: insomnia Last Admin: 11/13/22 19:39 Dose: 6 mg Documented By: JOSE Ondansetron HCl (Ondansetron Hcl 4 Mg/2 Ml Vial) 4 mg IVPUSH Q8H PRN PRN Reason: Nausea and Vomiting Pharmacy Consult (Consult Rx Perform Med Rec) 1 each MISCELLANE ONCE PRN PRN Reason: Consult order Sertraline HCl (Sertraline Hcl 100 Mg Tablet) 200 mg PO DAILY [facility] Last Admin: 11/14/22 08:30 Dose: 200 mg Documented By: LUDY Sodium Chloride (0.9 % Sodium Chloride Flush 3 Ml Syringe) 3 ml IVFLUSH QSHIFT [facility] Last Admin: 11/14/22 08:40 Dose: 3 ml Documented By: LUDY Trazodone HCl (Trazodone Hcl 50 Mg Tablet) 50 mg PO BEDTIME PRN PRN Reason: Sleep Last Admin: 11/13/22 19:39 Dose: 50 mg Documented By: JOSE Labs 11/14/22 07:53 11/14/22 07:53 Labs: Laboratory Results - last 24 hr 11/13/22 11/13/22 11/14/22 12:00 12:00 07:53 MCV 87.6 MCH 29.0 MCHC 33.1 RDW 14.6 Plt Count 206 MPV 9.3 L Immature Gran % (Auto) 0.4 Neut % (Auto) 79.3 H Lymph % (Auto) 5.3 L [place] % (Auto) 8.6 Eos % (Auto) 6.0 H Baso % (Auto) 0.4 Lymph # (Auto) 0.6 L [place] # (Auto) 1.0 Eos # (Auto) 0.7 H Baso # (Auto) 0.1 Abs Immat Gran (auto) 0.04 H Absolute Neuts (auto) 9.1 H Absolute Nucleated RBC 0.000 Nucleated RBC % (auto) 0.0 Anion Gap Estim Creat Clear Calc Estimated GFR Random Glucose Calcium Stl C. cayetanensis PCR Not Detected Stool Rotavirus A PCR Not Detected Stl Adenov F 40/ PCR Not Detected Stool Astrovirus (PCR) Not Detected Stool Campylobacter PCR Not Detected Stool Cryptosporidium PCR Not Detected Stl Sh Tox Pr E STEC PCR Not Detected Stool E coli O157 PCR Not applicable Stl Enterotoxigenic E PCR Not Detected Stool EPEC (PCR) Not Detected Stool EAEC (PCR) Not Detected Stl E. histolytica PCR Not Detected Stool Giardia Lamblia PCR Not Detected Stl P. shigelloides PCR Not Detected Stool Salmonella PCR Not Detected Stool Sapovirus (PCR) Not Detected Stl Shigella/EIEC PCR Not Detected St Y.enterocolitica PCR Not Detected Stool Vibrio (PCR) Not Detected Stl Vibrio cholerae PCR Not Detected Stl Norovirus GI/GII PCR Not Detected C. difficile Tox B Gene NEGATIVE 11/14/22 07:53 MCV MCH MCHC RDW Plt Count MPV Immature Gran % (Auto) Neut % (Auto) Lymph % (Auto) [place] % (Auto) Eos % (Auto) Baso % (Auto) Lymph # (Auto) [place] # (Auto) Eos # (Auto) Baso # (Auto) Abs Immat Gran (auto) Absolute Neuts (auto) Absolute Nucleated RBC Nucleated RBC % (auto) Anion Gap 12 Estim Creat Clear Calc 76.8 Estimated GFR > 60 Random Glucose 100 Calcium 9.4 Stl C. cayetanensis PCR Stool Rotavirus A PCR Stl Adenov F /41 PCR Stool Astrovirus (PCR) Stool Campylobacter PCR Stool Cryptosporidium PCR Stl Sh Tox Pr E STEC PCR Stool E coli O157 PCR Stl Enterotoxigenic E PCR Stool EPEC (PCR) Stool EAEC (PCR) Stl E. histolytica PCR Stool Giardia Lamblia PCR Stl P. shigelloides PCR Stool Salmonella PCR Stool Sapovirus (PCR) Stl Shigella/EIEC PCR St Y.enterocolitica PCR Stool Vibrio (PCR) Stl Vibrio cholerae PCR Stl Norovirus GI/GII PCR C. difficile Tox B Gene Microbiology Microbiology Results: Microbiology 11/11/22 19:18 Blood Culture - Preliminary Blood - Venous No growth after 48 hours. 11/11/22 19:18 Blood Culture - Preliminary Blood - Venous No growth after 48 hours. 11/11/22 Unknown Urine Culture - Final Urine clean catch - Urine de la garza top No growth. Assessment and Plan (1) Colitis: Status: Acute Plan Pt is a 72-year-old male with a PMH significant for?COPD, HTN, HLD, and s/p left AKA in 2019 who presents to the ED after patient's physical therapist noted him to be hypotensive.? Patient lives alone but has help from family and VNA, ambulates mostly with a wheelchair but can ambulate with help with a prosthetic leg. Patient states that he woke up a couple of days ago and felt dizzy, nauseous, with abdominal pain, and bloody liquid output in his ostomy.? Pt will be admitted to the hospital for treatment and further evaluation of sepsis likely secondary to colitis. Sepsis possibly secondary to colitis sepsis resolved s/p abdominal pain, bloody liquid output in ostomy, no further blood noted No other clear signs or sources of infection:? No signs of cellulitis, UA negative for UTI, CXR negative s/p empiric treatment with ceftriaxone, metronidazole s/p IV Protonix GI consult>no obvious colitis on abd ct, check stool studies and cdiff, both negative diet advanced to regular ISIDRA. resolved Patient's creatinine 3.49, baseline unknown Likely secondary to dehydration due to GI losses and decreased p.o. intake Hyponatremia. resolved Patient's sodium 125 at time of presentation Likely secondary to GI losses, ISIDRA treated with IV fluids Lung nodules patient reported that he had workup already no need for further testing possible pyelonephritis noted in abd ct no urinary symptoms, did report some back pain on rocephin complete 5 day tx, started 11/11/22 Stage I decubitus ulcer of left buttock repositioning q.2 hours Air loss mattress Daily dressing changes Wound care consult COPD Not in acute exacerbation Continue home inhalers HTN Hold antihypertensives for now, resume as indicated Monitor BP closely HLD Continue statin Attending:?Dr. Brewer DVT Prophylaxis:? Pneumatic boots continued hospital stay for treatment of?sepsis in the setting of likely colitis with IVF, IV antibiotics, and specialist consult. Time Spent With Patient Time: Total time managing care of this patient today ____ minutes. Quality Stroke Does the patient have a stroke diagnosis?: No VTE Prior VTE?: No VTE Risk Level:: Medical - moderate - high VTE Device Contraindication: N/A - Device Ordered VTE Drug Contraindication: Treatment Not Indicated
[2022-11-14] MEDS: Albuterol/Iprat 2.5/0.5MG 3 ML AMPUL.NEB INHALE ×2 (11:34→19:38)
--- NOTE | 2022-11-14 12:01 | MHC.CLN ---
RE: CONSULT PT IS MODERATELY MALNOURISHED PT REPORTED SIGNIFICANT WT LOSS X 2 YEARS AGO S/P L AKA AND COMPLICATED HOSPITAL COURSE REQUIRING OSTOMY PLACEMENT AND CHRONIC POOR PO WITH CHEWING DIFFICULTIES. PT WITH MILDLY DEPLETED SUBCUTANEOUS FAT AND MUSCLE MASS DIET RX: 2GM NA-RECOMMEND LIBERALIZE DIET TO INCREASE PO PT REPORTS PROBLEMS WITH CHEWING AND NEEDS A SOFT DIET PT DRINKS BOOST SUPPLEMENTS AT HOME [facility] RECOMMEND ADDING ENSURE TID TO INCREASE KCALS MONITOR PO INTAKE AND SUPP ACCEPTANCE SEE FULL CLINICAL NUTRITION ASSESSMENT
--- NOTE | 2022-11-14 14:28 | MHC.CM.PN ---
EMR reviewed and per MD rounds, pt is medically cleared for D/C home with resumption of [facility] VNA services. Pt awaiting F/C removal and bladder emptying trial prior to D/C. Pts friend will transport him home.
--- NOTE | 2022-11-14 15:13 | PM.DS ---
DS: Providers Provider Date of Service: 11/14/22 Date of admission: 11/11/22 19:26 Primary care physician: Unknown Physician Consults: 11/11/22 19:26 Consult to Gastroenterology Routine Consulting Provider: Carol Spear Reason for consultation: GI bleed 11/11/22 21:01 Consult to Wound Care Routine Consulting Provider: [facility] Wound Care Management Reason for consultation: Decubitus ulcer of left buttock DS: Diagnosis Discharge Diagnosis (1) Colitis: Status: Acute DS: Summary Hospital Course Hospital Course: HP as per admitting provider Pt is a 72-year-old male with a PMH significant for?COPD, HTN, HLD, and s/p left AKA in 2019 who presents to the ED after patient's physical therapist noted him to be hypotensive.? Patient lives alone but has help from family and VNA, ambulates mostly with a wheelchair but can ambulate with help with a prosthetic leg. Patient states that he woke up a couple of days ago and felt dizzy, nauseous, and with abdominal pain.? Says he could barely touch his stomach due to tenderness. Patient also noted bloody liquid stool in his ostomy.? Patient had subjective feve? though he did not take his temperature.? Denies chills.? Patient also reports having decreased p.o. intake of both solids and fluids, having lately only been drinking Coca[employer].? Has chronic shortness of breath that he says ?may be a little worse than at baseline.? Patient also reports a sacral decubitus ulcer.? Has had 1 in the past but it went away for a long time, however patient says that a few weeks ago it began to come back.? Has not yet had VNA services take care of it.In the ED patient was afebrile but tachycardic up to 102, with initial BP hypotensive at 88/46, though now hypertensive at 151/74. Labs were significant for leukocytosis of 25.6, H&H 11.3/33.1, sodium of 125, BUN 57, creatinine 3.49.? Stool was positive for occult blood.? UA positive for urine blood, trace leukocyte esterase, WBC 6-10, and with squamous epithelial cells of 3-5, but negative nitrates, and bacteria, likely negative for UTI. CXR showed no evidence of focal consolidation.? Did note 1 cm nodule opacity projected over the left lower lung that could represent nipple shadow versus nodule, with recommendation of follow-up radiograph with nipple markers for further evaluation. CT?of abdomen and pelvis pending. EKG demonstrated normal sinus rhythm without evidence of ST elevations or depressions. Pt was treated with IVF sepsis bolus and ceftriaxone. Pt will be admitted to the hospital for treatment and further evaluation of sepsis likely secondary to colitis . 72-year-old man treated for sepsis secondary to colitis. He was seen evaluated by Gastroenterology who thought that he did not actually have colitis and the recommendation was to check stool studies and C diff which were both negative. Any bleeding and that watery stools significantly slowed down. He was empirically treated with Rocephin and Flagyl as well as IV ppi due to the room bloody stool. The CT scan also showed possible pyelonephritis, patient does report any urinary symptoms but he did report he had some pain to his back therefore he was treated with Rocephin, will continue total 5 day treatment, started 11/11/2022. patient's diet was advanced to regular and he did very well without any further abdominal pain or watery stool. He was noted to have ISIDRA as well as hyponatremia both secondary to GI losses. Both treated with IV fluids with resolution. Chest CT was obtained and showed diffuse central lobar emphysema with 1.2 cm left lower lobe and 7 mm right lower lobe nodule. After discussion with the patient he reported that this has been discovered in the past and no further workup was necessary. Patient at this point is safe for discharge home. Stage I decubitus ulcer of left buttock. Reposition every 2 hours, air loss mattress, daily dressing changes, continue previous home management COPD. No exacerbation. Continue home medications HTN. Pressure medication was withheld during admission secondary to sepsis to avoid hypotension. May resume a discharge HLD. Continue statin Time Spent with Patient Time attestation: Total time managing care of this patient today ____ minutes. Discharge coordination time: Greater than 30 minutes Quality: Safe Use of Opioids Does Pt have an Active Cancer Diagnosis on the Problem List?: No Quality: Stroke Does the patient have a stroke diagnosis?: No Physical Exam Vital Signs: Vital Signs: Last Vital Signs Temp 98.9 F 11/14/22 11:06 Pulse 96 11/14/22 11:36 Resp 20 11/14/22 11:36 BP 145/72 H 11/14/22 11:06 Pulse Ox 94 11/14/22 11:06 O2 Del Method Room Air 11/14/22 11:06 BMI result Body Mass Index 19.0 Appearing in no acute distress head is normocephalic atraumatic eyes pupils are PERRLA sclera is anicteric mouth throat mucous membranes are intact and moist neck is supple no lymphadenopathy, no JVD noted lung sounds are clear to auscultation heart regular rate rhythm, clear S1, S2 positive bowel sounds, abdomen is soft, nontender, ostomy neuro patient is alert x3, no focal deficits DS: Data Data Completed and Pending Labs on day of discharge: Laboratory Results - last 24 hr 11/14/22 11/14/22 07:53 07:53 WBC 11.4 H RBC 3.79 L Hgb 11.0 L Hct 33.2 L MCV 87.6 MCH 29.0 MCHC 33.1 RDW 14.6 Plt Count 206 MPV 9.3 L Immature Gran % (Auto) 0.4 Neut % (Auto) 79.3 H Lymph % (Auto) 5.3 L [place] % (Auto) 8.6 Eos % (Auto) 6.0 H Baso % (Auto) 0.4 Lymph # (Auto) 0.6 L [place] # (Auto) 1.0 Eos # (Auto) 0.7 H Baso # (Auto) 0.1 Abs Immat Gran (auto) 0.04 H Absolute Neuts (auto) 9.1 H Absolute Nucleated RBC 0.000 Nucleated RBC % (auto) 0.0 Sodium 135 Potassium 4.5 Chloride 100 Carbon Dioxide 28 Anion Gap 12 BUN 14 Creatinine 0.65 Estim Creat Clear Calc 76.8 Estimated GFR > 60 Random Glucose 100 Calcium 9.4 Preliminary micro results at discharge 11/11/22 19:18 Blood Culture - Preliminary Blood - Venous No growth after 48 hours. 11/11/22 19:18 Blood Culture - Preliminary Blood - Venous No growth after 48 hours. Discharge Plan Discharge Anticipated Discharge Date/Time: 11/14/22 15:08 Patient Disposition: Home Health Service Discharge Diagnosis: Sepsis Colitis ISIDRA Hyponatremia Pyelonephritis Referrals: [facility] [Outside] - 1 Week Discharge Medications: New cefuroxime axetil 250 mg tablet 500 mg PO BID Qty: 4 0RF Continued buspirone 5 mg tablet 5 mg PO BEDTIME bupropion HCl 150 mg Tablet Sustained-Release 12 Hr 150 mg PO DAILY fluticasone propion-salmeterol [Wixela Inhub] 250-50 mcg/dose Blister With Device 1 inh INHALATION BID PRN (Reason: Shortness Of Breath) atorvastatin 20 mg tablet 20 mg PO DAILY ipratropium-albuterol 0.5 mg-3 mg(2.5 mg base)/3 mL solution for nebulization 3 ml inhalation QID PRN (Reason: Shortness Of Breath) trazodone 50 mg tablet 50 mg PO BEDTIME PRN (Reason: Sleep) sertraline 100 mg tablet 200 mg PO DAILY cyanocobalamin (vitamin B-12) 1,000 mcg Tablet 1,000 mcg PO DAILY aspirin 81 mg tablet,delayed release (DR/EC) 81 mg PO DAILY lorazepam 0.5 mg tablet 0.5 mg PO BID PRN (Reason: Anxiety) lisinopril 10 mg tablet 10 mg PO DAILY gabapentin 100 mg capsule 100 mg PO BID albuterol sulfate 90 mcg/actuation HFA aerosol inhaler 2 puff inhalation Q4H PRN (Reason: wheezing) guaifenesin 600 mg Tablet Extended Release 12hr 600 mg PO Q12H PRN (Reason: Congestion) Discharge Orders: Discharge Order (Routine); Ordered 11/14/22 Ordered By: Merle Lao Diet: Advance to usual diet Activity on Discharge: As tolerated Stand Alone Forms: Patient Portal Discharge page Care Plan Goals: Complete resolution of symptoms Health Concerns: Sepsis Colitis ISIDRA Hyponatremia Pyelonephritis Plan of Treatment: Follow-up with primary care provider as needed Take all medications as prescribed Assessment: See discharge summary
--- NOTE | 2022-11-14 15:16 | PC.NURSE ---
face to face order per [employer] [facility] Merle Cardozo DC de De cath was removed at 1505. pt tolerated well. due to void aT [id number]
--- NOTE | 2022-11-14 15:25 | W.MHC.F2F ---
Service Date Service Date: 11/14/22 Encounter Date of encounter: 11/14/22 Reasons for Services Signs and symptoms assessed: sepsis possibly secondary to colitis silverio Reason for retirement: CV/CP assess and/or care Homebound: Leaving the home is medically contraindicated at this time without the asist of a device and/or another person due th the listed conditions above and below. Reason homebound: unsteady gait / fall risk Certification: Based on the above findings, I certify that this patient is confined to the home and needs intermittent retirement care, physical therapy and/or speech therapy, or continues to need occupational therapy. The patient is under my care, and I have initiated the establishment of the plan of care. The patient will be followed by a physician who will periodically review the plan of care. Time Spent With Patient Time: Total time managing care of this patient today ____ minutes.
--- NOTE | 2022-11-14 18:39 | P.CONWO_ITS ---
History of Present Illness Data of Consult Service Date: 11/14/22 Requesting physician: Antonio Hughes Primary Care Provider: Unknown Physician HPI Reason for consult: left buttock ulcer [id number]: 72-year-old male admitted for hypovolemic hyponatremia, ISIDRA and suspected GI bleed after guaiac-positive stools. Follow-up for sepsis. UTI. History of decubitus ulcer of the left buttock. Eating well. No fever or drainage of the buttocks appreciated but complains of pain with prolonged sitting. PMFSH Social History Household Members: None Housing: House Patient Tobacco Use Status: Current everyday Tobacco user Tobacco use type: Cigarette Cigarette Packs Per Day: 0.5 Cigarettes Per Day: 10.0 Smoked in Last 30 Days: No Patient Interested in Nicotine Replacement: No Use of substances other than those prescribed or required for medical reasons: No Currently Displaying Signs/Symptoms of Drug Intoxication Withdrawal: No Have you been hit, kicked, punched, or otherwise hurt by someone within the past year? If so, by whom?: No Do you feel safe in your current relationship?: Yes Is there a partner from a previous relationship who is making you feel unsafe now?: No Are you made to feel afraid or neglected: No Advance Directives: No Advance Directives Information Provided: No Do you have thoughts of harming others: None Do you have a plan to hurt others: No Plan Recently lost weight without trying: No Nutrition Risks: No Nutritional Risk Poor oral hygiene: Yes service: Yes Meds Allergies Allergy/AdvReac Type Severity Reaction Status Date / Time No Known Allergies Allergy Verified 11/11/22 17:08 Active Medications: Current Medications Acetaminophen (Acetaminophen 325 Mg Tablet) 650 mg PO Q6H PRN PRN Reason: Pain, Mild (Pain Scale 1-3) Last Admin: 11/13/22 19:40 Dose: 650 mg Acetaminophen (Acetaminophen Supp 650 Mg Supp.Rect) 650 mg KS Q6H PRN PRN Reason: Pain, Mild (Pain Scale 1-3) Albuterol Sulfate (Albuterol Sulfate 90 Mcg 8 Gm Inhaler) 2 puff INHALE RQ4H PRN PRN Reason: wheezing Albuterol/Ipratropium (Albuterol/Iprat 2.5/0.5mg 3 Ml Ampul.Neb) 3 ml INHALE RQ4H PRN PRN Reason: Wheezing Last Admin: 11/14/22 11:34 Dose: 3 ml Bupropion HCl (Bupropion Hcl 75 Mg Tablet) 75 mg PO BID [facility] Last Admin: 11/14/22 08:30 Dose: 75 mg Buspirone HCl (Buspirone Hcl 5 Mg Tablet) 5 mg PO BEDTIME [facility] Last Admin: 11/13/22 19:40 Dose: 5 mg Fluticasone/Vilanterol (Fluticasone/Vilanterol 100/25 Blst.W.Dev) 1 puff INHALE DAILY PRN PRN Reason: Shortness Of Breath Gabapentin (Gabapentin 100 Mg Capsule) 100 mg PO BID [facility] Last Admin: 11/14/22 08:30 Dose: 100 mg Guaifenesin (Guaifenesin La 600 Mg Tab.Er.12h) 600 mg PO Q12H PRN PRN Reason: Congestion Ceftriaxone Sodium 1 gm/ (Sodium Chloride) 50 mls @ 100 mls/hr IV Q24H [facility] Last Infusion: 11/13/22 21:00 Dose: Infused Lorazepam (Lorazepam 0.5 Mg Tablet) 0.5 mg PO BID PRN PRN Reason: Anxiety Last Admin: 11/14/22 08:30 Dose: 0.5 mg Melatonin (Melatonin 3 Mg Tablet) 6 mg PO BEDTIME PRN PRN Reason: insomnia Last Admin: 11/13/22 19:39 Dose: 6 mg Ondansetron HCl (Ondansetron Hcl 4 Mg/2 Ml Vial) 4 mg IVPUSH Q8H PRN PRN Reason: Nausea and Vomiting Pharmacy Consult (Consult Rx Perform Med Rec) 1 each MISCELLANE ONCE PRN PRN Reason: Consult order Sertraline HCl (Sertraline Hcl 100 Mg Tablet) 200 mg PO DAILY [facility] Last Admin: 11/14/22 08:30 Dose: 200 mg Sodium Chloride (0.9 % Sodium Chloride Flush 3 Ml Syringe) 3 ml IVFLUSH QSHIFT [facility] Last Admin: 11/14/22 16:14 Dose: 3 ml Trazodone HCl (Trazodone Hcl 50 Mg Tablet) 50 mg PO BEDTIME PRN PRN Reason: Sleep Last Admin: 11/13/22 19:39 Dose: 50 mg Home Medications Medication Instructions Recorded Confirmed Last Taken Type albuterol sulfate 90 mcg/actuation 2 puff inhalation Q4H PRN wheezing 11/11/22 11/11/22 Unknown History aerosol inhaler aspirin 81 mg tablet,delayed 81 mg PO DAILY 11/11/22 11/11/22 11/11/22 History release atorvastatin 20 mg tablet 20 mg PO DAILY 11/11/22 11/11/22 11/11/22 History bupropion HCl 150 mg tablet,12 hr 150 mg PO DAILY 11/11/22 11/11/22 11/11/22 History sustained-release buspirone 5 mg tablet 5 mg PO BEDTIME 11/11/22 11/11/22 11/10/22 History cyanocobalamin (vitamin B-12) 1,000 mcg PO DAILY 11/11/22 11/11/22 11/11/22 History 1,000 mcg tablet fluticasone 250 mcg-salmeterol 50 1 inh inhalation BID PRN Shortness 11/11/22 11/11/22 Unknown History mcg/dose blistr powdr for Of Breath inhalation (Wixela Inhub) gabapentin 100 mg capsule 100 mg PO BID 11/11/22 11/11/22 11/11/22 History guaifenesin 600 mg tablet, 600 mg PO Q12H PRN Congestion 11/11/22 11/11/22 Unknown History extended release 12 hr ipratropium 0.5 mg-albuterol 3 mg 3 ml inhalation QID PRN Shortness 11/11/22 11/11/22 Unknown History (2.5 mg base)/3 mL nebulization Of Breath soln lisinopril 10 mg tablet 10 mg PO DAILY 11/11/22 11/11/22 11/11/22 History lorazepam 0.5 mg tablet 0.5 mg PO BID PRN Anxiety 11/11/22 11/11/22 Unknown History sertraline 100 mg tablet 200 mg PO DAILY 11/11/22 11/11/22 11/11/22 History trazodone 50 mg tablet 50 mg PO BEDTIME PRN Sleep 11/11/22 11/11/22 Unknown History Physical Exam Vital Signs and Narrative: Vital Signs: Last Vital Signs Temp 98.7 F 11/14/22 15:33 Pulse 98 11/14/22 15:33 Resp 20 11/14/22 15:33 BP 137/68 11/14/22 15:33 Pulse Ox 93 11/14/22 15:33 O2 Del Method Room Air 11/14/22 15:33 BMI result Body Mass Index 19.0 No open wound. Prominent sacrum. Appropriately blanches over bony prominence. Results Labs 11/14/22 07:53 11/14/22 07:53 Labs: Laboratory Results - last 24 hr 11/14/22 11/14/22 07:53 07:53 MCV 87.6 MCH 29.0 MCHC 33.1 RDW 14.6 Plt Count 206 MPV 9.3 L Immature Gran % (Auto) 0.4 Neut % (Auto) 79.3 H Lymph % (Auto) 5.3 L [place] % (Auto) 8.6 Eos % (Auto) 6.0 H Baso % (Auto) 0.4 Lymph # (Auto) 0.6 L [place] # (Auto) 1.0 Eos # (Auto) 0.7 H Baso # (Auto) 0.1 Abs Immat Gran (auto) 0.04 H Absolute Neuts (auto) 9.1 H Absolute Nucleated RBC 0.000 Nucleated RBC % (auto) 0.0 Anion Gap 12 Estim Creat Clear Calc 76.8 Estimated GFR > 60 Random Glucose 100 Calcium 9.4 Assessment and Plan (1) Acute hyponatremia: Status: Acute Plan 72-year-old male with no evidence of open wound. Sacrum looks blanchable. Recommend frequent positional changes in optimization of nutrition. No further need for wound care. Time Spent With Patient Time: Total time managing care of this patient today ____ minutes.
--- NOTE | 2022-11-14 20:23 | PC.NURSE ---
pt bladder scanned at 20:10. was 549 mls. voided 100mls shortly afterwards. MD notified, ordered to straight cath but patient refused, MD notified.
--- NOTE | 2022-11-14 20:24 | PM.EVENT ---
Event Note Date of Service: 11/14/22 Event Note: Patient's Arguello catheter was discontinued prior to discharge. Patient is retaining and has not Peed since the Arguello catheter was removed this afternoon. Bladder scan for over 500 cc of urine. Patient was able to urinate about 100 mL. Was offered straight cath but refused and wants to leave. Time Spent With Patient Time: Total time managing care of this patient today ____ minutes.
== END 2022-11-14 20:48 | disposition home health service (06) | DRG 872 ==
LOC: HO.ED 19:22 → HO.EDOVER 19:31 → HO.IMC 19:41
PROVIDERS: Admitting Provider Student in an Organized Health Care Education/Training Program; Emergency Provider Emergency Medicine; PCP Internal Medicine; Visit Provider Nurse Practitioner Acute Care
DX: A41.9 Sepsis, unspecified organism (principal); E87.1 Hypo-osmolality and hyponatremia; N17.9 Acute kidney failure, unspecified; E44.0 Moderate protein-calorie malnutrition; Z68.1 Body mass index [BMI] 19.9 or less, adult; N10 Acute pyelonephritis; K92.1 Melena; L89.321 Pressure ulcer of left buttock, stage 1; R91.8 Other nonspecific abnormal finding of lung field; J44.9 Chronic obstructive pulmonary disease, unspecified; E86.1 Hypovolemia; K52.9 Noninfective gastroenteritis and colitis, unspecified; I95.9 Hypotension, unspecified; F17.210 Nicotine dependence, cigarettes, uncomplicated; I10 Essential (primary) hypertension; Z93.3 Colostomy status; Z71.6 Tobacco abuse counseling; Z79.51 Long term (current) use of inhaled steroids; Z79.82 Long term (current) use of aspirin; Z79.899 Other long term (current) drug therapy
CPT/HCPCS: 36415; 71045; 71250; 74176; 80048; 80076; 81001; 82272; 82947; 83605; 83690; 83735; 85025; 85610; 85730; 87040; 87086; 87493; 87507; 93005; 94640; 97161; 99285; C1758; J0696

== ENCOUNTER → 2022-11-11 19:26 | Outpatient (BNV) | payer MEDICARE, SELFPAY | PROVIDERS: Admitting Provider Student in an Organized Health Care Education/Training Program; Emergency Provider Emergency Medicine; Visit Provider Student in an Organized Health Care Education/Training Program | DX: K52.9 Noninfective gastroenteritis and colitis, unspecified (principal); E87.1 Hypo-osmolality and hyponatremia; N17.9 Acute kidney failure, unspecified; K92.2 Gastrointestinal hemorrhage, unspecified | CPT/HCPCS: 99223; 99232; 99239; 99499; G0180 ==